=== PATIENT | male | born 1955 | race Caucasian/White ===

== ENCOUNTER → 2020-05-11 | Outpatient (CLI) | payer OTHER ==
[~2020-05-11] MED LIST: ASPI-630 PO; ATOR10TA PO; EMPA25TA PO; GABA300C18 PO; LEVO75TA5 PO; OMEP20CA16 PO; OXYC-325 PO; SITA1TAB11 PO; TAMS0.4C97 PO
== END ==
LOC: LAB 10:41
PROVIDERS: ATTEND Surgery
DX: Z01.812 Encounter for preprocedural laboratory examination (principal); Z20.822 Contact with and (suspected) exposure to COVID-19; K80.20 Calculus of gallbladder without cholecystitis without obstruction; K74.60 Unspecified cirrhosis of liver
CPT/HCPCS: U0003

== ENCOUNTER 2020-05-14 06:26 | Day surgery (SDC) | payer OTHER ==
[~2020-05-14] VITALS: Ht 167.6 cm; Wt 115.5 kg
[~2020-05-14 06:26] MED LIST changes: +ACETAMINOPHEN 500 MG TABLET PO PRN; +HYDROmorphone 2 MG/ML VIAL IVP PRN; +IV RINGERS,LACTATED 1000ML 1,000 ML IV SCH; -OXYC-325 PO; +PROCHLORPERAZINE 10 MG/2 ML VIAL. IVP PRN; +fentaNYL PF VIAL 100 MCG/2 ML VIAL IVP PRN
[2020-05-14] MEDS ORDERED: ROCURONIUM 50 MG/5 ML VIAL. ONE (07:03)
[2020-05-14] MEDS ORDERED: fentaNYL PF VIAL 250 MCG/5 ML VIAL ONE (07:05)
[2020-05-14] MEDS ORDERED: DEXAMETHASONE SOD PHOS 4 MG/ML VIAL ONE (07:09)
[2020-05-14] MEDS ORDERED: PROPOFOL 10 MG/ML (20ML) VIAL. IV ONE (07:09)
[2020-05-14] MEDS ORDERED: LIDOCAINE 2% PF 5 ML VIAL. ONE (07:09)
[2020-05-14] MEDS ORDERED: ONDANSETRON PF 4 MG/2 ML VIAL. ONE (07:10)
[2020-05-14] MEDS ORDERED: SURGICEL HEMOSTAT 4X8 EACH. ONE (07:15)
[2020-05-14] MEDS ORDERED: IOHEXOL 300 MG/ML 50 ML VIAL. ONE (07:15)
[2020-05-14] MEDS ORDERED: MIDAZOLAM HCL/PF 2 MG/2 ML VIAL. ONE (07:15)
[2020-05-14] MEDS ORDERED: BUPIVACAINE-EPI 0.25% 30 ML VIAL KIT. ONE (07:15)
[2020-05-14] MEDS: INSULIN LISPRO 100 UNIT/ML 3ML VIAL for OP,RR ONLY. SQ PRN ×2 (07:16→09:34)
[2020-05-14] MEDS ORDERED: SUCCINYLCHOLINE 200 MG/10 ML VIAL. ONE (07:40)
[2020-05-14] MEDS ORDERED: NEOSTIGMINE METHYLSULFATE 5 MG/5 ML SYRINGE. ONE (08:13)
[2020-05-14] MEDS ORDERED: PHENYLEPHRINE in 0.9% NACL PF 1 MG/10 ML SYRINGE. IV ONE (08:13)
[2020-05-14] MEDS ORDERED: GLYCOPYRROLATE 1 MG/5 ML VIAL. ONE (08:13)
[2020-05-14] MEDS ORDERED: ePHEDrine PF IN SALINE 50 MG/10 ML SYRINGE. IV ONE (08:13)
--- NOTE | 2020-05-14 09:02 | PDOC4 ---
Operative Note Operative Note Date: May 142020 at 858 Preoperative diagnosis: Chronic cholecystitis cholelithiasis and cirrhosis Postoperative diagnosis: Same Procedure: Laparoscopic cholecystectomy and liver biopsy Surgeon: Don Specimen: Gallbladder and liver biopsy Dictation: Patient is a 64-year-old male with right upper quadrant abdominal pain ultrasound showing gallstones. Procedure of laparoscopic cholecystectomy was explained to the patient in detail risk benefits were also discussed including bleeding infection injury to intra-abdominal contents possible necessitating further open operations alternatives to this procedure also discussed with the patient who seemed to understand and gave both verbal and written consent to have the procedure performed. Patient was taken to the operating room placed in supine position general anesthesia was initiated once patient was sleeping intubated his abdomen was prepped and draped usual sterile fashion using ChloraPrep. An area in the left upper quadrant was injected with quarter percent Marcaine with epinephrine incision was made 11 blade scalpel and a 5 mm Visiport was placed under direct visualization into the abdomen creating pneumoperitoneum once this was complete 5 mm camera was placed within the abdomen and inspected was noted that the liver was quite cirrhotic very irregular borders and firm. A 11 mm port was placed in the low in the midline the abdomen under direct visualization 5 mm port was placed in the epigastrium a 5 mm port was placed in the right midabdomen a 5 mm port was placed on the right lateral abdomen. The dome of the gallbladder is grasped retracted cephalad the adherent tissues to the gallbladder were taken down with blunt dissection the infundibulum the gallbladder is grasped retracted laterally was noted the infundibulum was quite distended extended quite far into the triangle adherent tissues were taken down visualization into the triangle was quite difficult as to whether the infundibulum was extended or if there was the cystic duct that was quite dilated as felt the safest option was to staple the infundibulum. So the epigastric 5 mm port was changed out for a 12 mm port and a Endo DONNELL stapler was used to staple and transect the infundibular gallbladder the cystic artery was clipped and transected the gallbladder is taken off the liver with hook electrocautery. The liver was biopsied twice with a Edward-Cut needle biopsy and then a small alligator clamp was used to bite a portion of the liver for biopsy. Hemostasis deemed to be appropriate the pneumoperitoneum was reduced all ports removed the fascial defect at the 12 mm port site in the epigastrium was closed with a single [id number] 0 Vicryl suture and skin was reapproximated all port sites for subcuticular Monocryl Mastisol Steri-Strips and island dressings were applied. Patient was awakened extubated in the operating room taken to recovery in stable condition all sponge instrument needle counts listed as correct estimated blood loss 20 mL KAITLYNN CARDOZA MD May 14, 2020 09:02
--- NOTE | 2020-05-14 09:03 | DISCH ---
DISCHARGE INSTRUCTIONS Condition on Discharge Condition on Discharge: Stable Activity After Discharge Activity Instructions for Disc: Avoid exertion Other activity instructions: No lifting more than 20 pounds for 2 weeks Diet after Discharge Diet after Discharge: Low Fat Wound Incision Care Other wound/incision instructi: May shower in 24 hours Contacting the after DC Call your doctor for: If your condition worsens Follow-Up Follow up with: Dr. Cardoza in 2 weeks KAITLYNN CARDOZA MD May 14, 2020 09:03
[2020-05-14] MEDS ORDERED: fentaNYL PF VIAL 100 MCG/2 ML VIAL ONE (09:23)
[2020-05-14] MEDS ORDERED: OXYC-325 PO (09:25)
[2020-05-14] MEDS: fentaNYL PF VIAL 100 MCG/2 ML VIAL IVP PRN ×2 (09:26→09:38)
[2020-05-14] MEDS ORDERED: oxyCODONE/APAP 5/325 1 TAB TABLET PO ONE (09:30)
[2020-05-14] MEDS ORDERED: INSULIN LISPRO 100 UNIT/ML 3ML VIAL for OP,RR ONLY. SQ ONE ×2 (09:40)
[2020-05-14] MEDS ORDERED: MORPHINE SULFATE 2 MG/ML VIAL. ONE (09:51)
[2020-05-14] MEDS: MORPHINE SULFATE 2 MG/ML VIAL. IVP PRN ×2 (09:56→10:06)
[2020-05-14 10:25] VITALS: BP 131/80
--- NOTE | 2020-05-17 14:10 | PATHOLOGY ---
[facility] Accession Number: [id number] . 01 Material submitted: . PART A: gallbladder - GALLBLADDER AND CONTENTS PART B: liver - LIVER BIOPSY . 02 Diagnosis: A. Gallbladder, cholecystectomy: - Cholelithiasis. - Cholesterolosis. - Chronic cholecystitis. . B. Liver biopsy: - Negative for malignancy - final diagnosis pending consultation. (JPM:ankush; 05/17/2020) S 05/17/2020 0940 Local . 02 Comment: The liver biopsy shows fatty change with fibrosis and chronic inflammation. There is no evidence of malignancy. A definitive diagnosis is pending consultation with Dr. Aopdaca. This will be the subject of an addendum report. (JPM:ankush; 05/17/2020) . . Special stains performed: Trichrome, retic, iron stain, PAS stain without diastase and PAS stain with diastase, all on block B1 . 02 Electronically signed: . Pavel Bird MD, Pathologist NPI- [id number] . 01 Gross description: . A. Received in formalin labeled "José Miguel Raman, gallbladder and contents" is a previously opened cholecystectomy specimen measuring 9.0 x 3.5 x 1.6 cm. The serosa is pink-troy and smooth with a 1.5 cm full-thickness defect. The specimen is opened to reveal troy-red velvety mucosa without polyps or masses. The average wall thickness is 0.1 cm. Within the gallbladder are multiple green roughened calculi measuring in aggregate 1.2 x 0.5 x 0.5 cm and ranging from 0.1-0.7 cm in greatest dimension. Senior Systems Programmer sections of the fundus and body and the cystic duct margin are submitted in A1. . B. Received in formalin labeled "Raman, José Miguel, liver biopsy" are multiple fragments of troy-brown soft tissue measuring in aggregate 1.7 x 1.0 x 0.3 cm. The largest piece is bisected and the specimen is submitted entirely in B1. ([facility] [place]; 05/16/2020) [facility] 05/16/2020 1002 Local . 02 Pathologist provided ICD-10: K80.10, K81.1 . 02 CPT . 220735 Specimen Comment: A courtesy copy of this report has been sent to [phone] Specimen Comment: Report sent to Performed at: 01 [facility] [address], [place] [id number] MD Gabriel Christina MD Phone: [phone] Performed at: 02 [facility] [address] [place], [place] [id number] MD Pavel Bird MD Phone: [phone]
== END 2020-05-14 11:00 | disposition home or self-care (01) ==
LOC: SURG 06:26
PROVIDERS: ATTEND Surgery
DX: K80.10 Calculus of gallbladder with chronic cholecystitis without obstruction (principal); K74.60 Unspecified cirrhosis of liver; E78.00 Pure hypercholesterolemia, unspecified; E66.9 Obesity, unspecified; E11.9 Type 2 diabetes mellitus without complications; F17.210 Nicotine dependence, cigarettes, uncomplicated; Z85.828 Personal history of other malignant neoplasm of skin; Z79.899 Other long term (current) drug therapy; Z98.890 Other specified postprocedural states; Z79.82 Long term (current) use of aspirin; Z72.89 Other problems related to lifestyle
CPT/HCPCS: 47379; 47562; 82962; J0330; J0690; J1100; J1815; J2250; J2270; J2370; J2405; J2704; J2710; J3010; J3490; J7120; 88304; 88307; 88313; Q9967

== ENCOUNTER 2020-05-14 14:55 | Emergency (ER) | payer OTHER ==
[~2020-05-14] VITALS: Ht 167.6 cm; Wt 111.0 kg
[~2020-05-14 14:55] MED LIST changes: -ACETAMINOPHEN 500 MG TABLET PO PRN; -HYDROmorphone 2 MG/ML VIAL IVP PRN; -IV RINGERS,LACTATED 1000ML 1,000 ML IV SCH; +OXYC-325 PO; -PROCHLORPERAZINE 10 MG/2 ML VIAL. IVP PRN; -fentaNYL PF VIAL 100 MCG/2 ML VIAL IVP PRN
[2020-05-14 15:09] VITALS: BP 137/86
[2020-05-14] MEDS ORDERED: LIDOCAINE 2%/EPI 1:100,000 20 ML VIAL. INJ ONE (15:30)
--- NOTE | 2020-05-14 15:42 | PHYS DOC ---
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 Ochoa. He is here today because after he left he had gone to the pharmacy to get his pain medication and when he went to sit up in the car and move his legs to the side to twist get out of the car his surgical puncture wound to the low mid abdomen popped open and began to bleed. Bleeding is controlled. Steri-Strips are still in place. (KORY MORALES CINDER BLOCK MAKER) Review of Systems: Review of Systems: Constitutional: Denies fever or chills. [] Eyes: Denies change in visual acuity. [] HENT: Denies nasal congestion or sore throat. [] Respiratory: Denies cough or shortness of breath. [] Cardiovascular: Denies chest pain or edema. [] GI: Denies abdominal pain, nausea, vomiting, bloody stools or diarrhea. [] : Denies dysuria. [] Musculoskeletal: Denies back pain or joint pain. [] Integument: Denies rash. Low mid abdominal surgical puncture open and bleeding. [] Neurologic: Denies headache, focal weakness or sensory changes. [] Endocrine: Denies polyuria or polydipsia. [] Lymphatic: Denies swollen glands. [] Psychiatric: Denies depression or anxiety. [] (KORY MORALES CINDER BLOCK MAKER) Heart Score: Risk Factors: Risk Factors: DM, Current or recent (<one month) smoker, HTN, HLP, family history of CAD, obesity. Risk Scores: Score 0 - 3: 2.5% MACE over next 6 weeks - Discharge Home Score 4 - 6: 20.3% MACE over next 6 weeks - Admit for Clinical Observation Score 7 - 10: 72.7% MACE over next 6 weeks - Early Invasive Strategies (KORY MORALES CINDER BLOCK MAKER) Allergies: Allergies: Allergies Coded Allergies Type Severity Reaction Last Updated Verified No Known Drug Allergies 05/14/20 No (KORY MORALES APRN) Physical Exam: PE: Constitutional: Well developed, well nourished, no acute distress, non-toxic appearance. [] HENT: Normocephalic, atraumatic, bilateral external ears normal, oropharynx moist, no oral exudates, nose normal. [] Eyes: PERRLA, EOMI, conjunctiva normal, no discharge. [] Neck: Normal range of motion, no tenderness, supple, no stridor. [] Cardiovascular:Heart rate regular rhythm, no murmur [] Lungs & Thorax: Bilateral breath sounds clear to auscultation [] Abdomen: Bowel sounds normal, soft, no tenderness, no masses, no pulsatile masses. [] Skin: Warm, dry, no erythema, no rash. Post op puncture wound open and bleeding. [] Back: No tenderness, no CVA tenderness. [] Extremities: No tenderness, no cyanosis, no clubbing, ROM intact, no edema. [] Neurologic: Alert and oriented X 3, normal motor function, normal sensory function, no focal deficits noted. [] Psychologic: Affect normal, judgement normal, mood normal. [] (KORY MORALES APRN) Current Patient Data: Vital Signs: Vital Signs Date Time Temp Pulse Resp B/P (MAP) Pulse Ox O2 Delivery O2 Flow Rate FiO2 05/14/20 15:09 98.1 108 12 137/86 (103) 94 Room Air 98.1 (KORY MORALES APRN) EKG: EKG: [] (KORY MORALES APRN) Radiology/Procedures: Radiology/Procedures: [] (KORY MORALES APRN) Course & Med Decision Making: Course & Med Decision Making Pertinent Labs and Imaging studies reviewed. (See chart for details) See HPI. Alert and oriented x4. Ambulatory with steady gait. Speaks in full clear sentences. Vital signs within normal limits. I spoke to Dr. Ochoa who stated that it is okay to put a stitch to the area. Laceration repair Location: Postsurgical puncture wound to the low mid abdomen Local anesthesia: Lidocaine with epinephrine Interrupted sutures/Internal sutures: 2 sutures 4-0 Nerve/ligament/muscle damage: None Cleaning and irrigation: Chlorhexidine The appropriate timeout was taken. The area was prepped and draped in the usual sterile fashion. The wound was copiously irrigated with normal saline and chlorhexidine. Patient tolerated well without complication. Dressing was applied to the area follow-up education is given to observe for signs and symptoms of infection, bleeding and to follow-up promptly if these occur. Patient can return in 48 hours for a wound recheck. Sutures to be removed in 7 to 10 days. [] (KORY MORALES APRN) Dragon Disclaimer: Dragon Disclaimer: This electronic medical record was generated, in whole or in part, using a voice recognition dictation system. (KORY MORALES APRN) Departure Departure Impression: Primary Impression: Post-operative complication Qualified Codes: L76.82 - Other postprocedural complications of skin and subcutaneous tissue Disposition: 01 DC HOME SELF CARE/HOMELESS Condition: STABLE Referrals: SUSANA PASCAL (PCP) Patient Instructions: Sutured Wound Care Additional Instructions: Follow-up with Dr. Ochoa as needed. Suture needs to be removed in 10 days. Watch for signs of infection. Attending Signature Attending Signature I have reviewed the PA/MEDICAL LEADER's note and plan of care. I was available for consultation as needed during the patient's visit in the emergency department. I agree with the clinical impression, plan, and disposition. (BRYSON MARIE DO) KORY MORALES APRN May 14, 2020 15:42 BRYSON MARIE DO May 14, 2020 17:53
== END 2020-05-14 16:27 | disposition home or self-care (01) ==
LOC: ER 16:07
DX: S31.139D Puncture wound of abdominal wall without foreign body, unspecified quadrant without penetration into peritoneal cavity, subsequent encounter (principal); L76.82 Other postprocedural complications of skin and subcutaneous tissue; E11.9 Type 2 diabetes mellitus without complications; F17.200 Nicotine dependence, unspecified, uncomplicated; Z87.442 Personal history of urinary calculi; X58.XXXD Exposure to other specified factors, subsequent encounter
CPT/HCPCS: 12001; 99282; J3490

== ENCOUNTER 2020-05-18 10:33 | Emergency (ER) | payer OTHER ==
[~2020-05-18] VITALS: Ht 167.6 cm; Wt 110.0 kg
[2020-05-18 14:24] LABS: CALCIUM 9.6 mg/dL (8.5-10.1); CREATININE 0.9 mg/dL (0.7-1.3); GFR 85.5; POTASSIUM 4.1 mmol/L (3.5-5.1)
[2020-05-18 14:33] LABS: ALBUMIN 3.4 g/dL (3.4-5.0); TOTAL BILIRUBIN 0.7 mg/dL (0.2-1.0); TOTAL PROTEIN 6.9 g/dL (6.4-8.2)
[2020-05-18 14:35] LABS: BASO # 0.1 x10^3/uL (0.0-0.2); BASO % 1 % (0-3); EOS # 0.2 x10^3/uL (0.0-0.7); EOS % 3 % (0-3); HEMATOCRIT 40.6 % (39.0-53.0); HEMOGLOBIN 13.8 g/dL (13.0-17.5); LYMPH # 1.9 x10^3/uL (1.0-4.8); LYMPH % 29 % (24-48); MEAN CORPUSCULAR HEMOGLOBIN 29 pg (25-35); MEAN CORPUSCULAR HGB CONC 34 g/dL (31-37); MEAN CORPUSCULAR VOLUME 86 fL (79-100); MONO # 0.4 x10^3/uL (0.0-1.1); MONO % 6 % (0-9); NEUT % 61 % (31-73); PLATELET COUNT 105 x10^3/uL (140-400); RED BLOOD COUNT 4.72 x10^6/uL (4.30-5.70); RED CELL DISTRIBUTION WIDTH 13.4 % (11.5-14.5); WHITE BLOOD COUNT 6.5 x10^3/uL (4.0-11.0)
[2020-05-18 14:45] LABS: PROTHROMBIN TIME PATIENT 13.5 SEC (11.7-14.0)
[2020-05-18 15:00] VITALS: BP 122/66
--- NOTE | 2020-05-18 15:25 | ED.ADGEN ---
Past Medical History Past Medical History: Diabetes-Type II, Gallstones, High Cholesterol, Hypothyroid, Kidney Stone Past Surgical History: Other Additional Past Surgical Histo: VASECTOMY, HERNIA SX Smoking Status: Current Some Day Smoker Alcohol Use: Occasionally General Adult EDM: Chief Complaint: OTHER COMPLAINTS HPI: HPI: Patient is a 64 year old male accompanied by his who presents to the emergency department with complaints of dark purple bruising to his lower abdomen and increased swelling to his right upper quadrant laparoscopic surgical sites that began today. Patient reports that he had his gallbladder removed by Dr. Ochoa at this facility last week. He states that he has had intermittent left upper quadrant and right upper quadrant abdominal pain but denies abdominal pain at this time. Patient reports that his abdomen feels full. He currently rates his discomfort a 5 out of 10 on the pain scale, he denies any bleeding from his abdomen, constipation, nausea, or vomiting. Patient denies any fever. Review of Systems: Review of Systems: Complete ROS is negative unless otherwise noted in HPI. Allergies: Allergies: Allergies Coded Allergies Type Severity Reaction Last Updated Verified No Known Drug Allergies 05/14/20 No Physical Exam: PE: See Above Constitutional: Well developed, well nourished, no acute distress, non-toxic appearance. [] HENT: Normocephalic, atraumatic, bilateral external ears normal, nose normal. [] Eyes: PERRLA, EOMI, conjunctiva normal, no discharge. [] Neck: Normal range of motion, no stridor. [] Cardiovascular:Heart rate regular rhythm Lungs & Thorax: Respirations even and unlabored, no retractions, no respiratory distress Abdomen: soft, nontender to palpation, no rebound tenderness, no guarding, multiple laparoscopic surgical sites without surrounding erythema or drainage Skin: Warm, dry, no erythema, large dark purple hematoma below the umbilicus Extremities: No cyanosis, ROM intact, no edema. [] Neurologic: Alert and oriented X 3, no focal deficits noted. [] Psychologic: Affect normal, judgement normal, mood normal. [] Current Patient Data: Labs: Laboratory Tests Test 05/18/20 13:40 05/18/20 14:25 Sodium Level 132 mmol/L (136-145) L Potassium Level 4.1 mmol/L (3.5-5.1) Chloride Level 98 mmol/L (98-107) Carbon Dioxide Level 22 mmol/L (21-32) Anion Gap 12 (6-14) Blood Urea Nitrogen 13 mg/dL (8-26) Creatinine 0.9 mg/dL (0.7-1.3) Estimated GFR (Cockcroft-Gault) 85.5 BUN/Creatinine Ratio 14 (6-20) Glucose Level 355 mg/dL (70-99) H Calcium Level 9.6 mg/dL (8.5-10.1) Total Bilirubin 0.7 mg/dL (0.2-1.0) Aspartate Amino Transferase (AST) 29 U/L (15-37) Alanine Aminotransferase (ALT) 48 U/L (16-63) Alkaline Phosphatase 140 U/L (46-116) H Total Protein 6.9 g/dL (6.4-8.2) Albumin 3.4 g/dL (3.4-5.0) Albumin/Globulin Ratio 1.0 (1.0-1.7) White Blood Count 6.5 x10^3/uL (4.0-11.0) Red Blood Count 4.72 x10^6/uL (4.30-5.70) Hemoglobin 13.8 g/dL (13.0-17.5) Hematocrit 40.6 % (39.0-53.0) Mean Corpuscular Volume 86 fL (79-100) Mean Corpuscular Hemoglobin 29 pg (25-35) Mean Corpuscular Hemoglobin Concent 34 g/dL (31-37) Red Cell Distribution Width 13.4 % (11.5-14.5) Platelet Count 105 x10^3/uL (140-400) L Neutrophils (%) (Auto) 61 % (31-73) Lymphocytes (%) (Auto) 29 % (24-48) Monocytes (%) (Auto) 6 % (0-9) Eosinophils (%) (Auto) 3 % (0-3) Basophils (%) (Auto) 1 % (0-3) Neutrophils # (Auto) 4.0 x10^3/uL (1.8-7.7) Lymphocytes # (Auto) 1.9 x10^3/uL (1.0-4.8) Monocytes # (Auto) 0.4 x10^3/uL (0.0-1.1) Eosinophils # (Auto) 0.2 x10^3/uL (0.0-0.7) Basophils # (Auto) 0.1 x10^3/uL (0.0-0.2) Prothrombin Time 13.5 SEC (11.7-14.0) Prothrombin Time INR 1.1 (0.8-1.1) Activated Partial Thromboplast Time 27 SEC (24-38) Laboratory Tests 05/18/20 14:25 Laboratory Tests 05/18/20 13:40 Vital Signs: Vital Signs Date Time Temp Pulse Resp B/P (MAP) Pulse Ox O2 Delivery O2 Flow Rate FiO2 05/18/20 15:30 78 95 Room Air 05/18/20 15:00 17 05/18/20 11:46 98.3 98.3 EKG: EKG: [] Heart Score: Risk Factors: Risk Factors: DM, Current or recent (<one month) smoker, HTN, HLP, family history of CAD, obesity. Risk Scores: Score 0 - 3: 2.5% MACE over next 6 weeks - Discharge Home Score 4 - 6: 20.3% MACE over next 6 weeks - Admit for Clinical Observation Score 7 - 10: 72.7% MACE over next 6 weeks - Early Invasive Strategies Radiology/Procedures: Radiology/Procedures: [] Course & Med Decision Making: Course & Med Decision Making Pertinent Labs and Imaging studies reviewed. (See chart for details) 1256-I spoke with Dr. Ochoa about the patient's presentation to the emergency room. I advised of the labs and work-up that has been ordered. Per Dr. Ochoa if no acute problems identified the patient needs to be instructed to alternate application of ice and heat to the bruised area every 2 hours while he is awake and instruct him to follow-up in the clinic tomorrow as planned. [] Alba Disclaimer: Draghaley Disclaimer: This electronic medical record was generated, in whole or in part, using a voice recognition dictation system. Departure Departure Impression: Primary Impression: Post-op bleeding Disposition: 01 DC HOME SELF CARE/HOMELESS Condition: STABLE Referrals: SUASNA PASCAL (PCP) Patient Instructions: Hematoma, [id number] Additional Instructions: Alternate heat and ice to bruised areas every 2 hours while awake. Follow up with Dr. Ochoa tomorrow as scheduled. Return to the ER if symptoms worsen. Problem Qualifiers Primary Impression: Post-op bleeding Surgical complication system/body Area: subcutaneous tissue Procedure type: non-dermatologic Qualified Codes: L76.22 - Postprocedural hemorrhage of skin and subcutaneous tissue following other procedure KEREN INFANTE APRN May 18, 2020 15:25
== END 2020-05-18 15:35 | disposition home or self-care (01) ==
LOC: ER 10:33
DX: L76.22 Postprocedural hemorrhage of skin and subcutaneous tissue following other procedure (principal); R10.11 Right upper quadrant pain; R60.0 Localized edema; E11.9 Type 2 diabetes mellitus without complications; E03.9 Hypothyroidism, unspecified; E78.00 Pure hypercholesterolemia, unspecified; Z87.442 Personal history of urinary calculi; Z87.891 Personal history of nicotine dependence; Z90.89 Acquired absence of other organs
CPT/HCPCS: 36415; 80053; 85025; 85610; 85730; 99285